=== PATIENT | male | born 1965 | race Caucasian/White ===

== ENCOUNTER 2017-01-16 08:28 | Outpatient (CLI) | payer OTHER | END 2017-01-16 08:29 | disposition home or self-care (01) | LOC: NAVSJIPCSP 08:28 | PROVIDERS: ATTEND Internal Medicine | DX: E78.5 Hyperlipidemia, unspecified (principal) | CPT/HCPCS: 36415; 80061 ==

== ENCOUNTER 2017-04-17 08:23 | Outpatient (CLI) | payer OTHER ==
[2017-04-17 13:09] LABS: Cardiac Risk 3.4 (Less than 4.5)
== END 2017-04-17 08:24 | disposition home or self-care (01) ==
LOC: NAVSJIPCSP 08:23
PROVIDERS: ATTEND Internal Medicine
DX: E78.5 Hyperlipidemia, unspecified (principal)
CPT/HCPCS: 36415; 80061